=== PATIENT | female | born 1975 | race Caucasian/White ===

== ENCOUNTER 2020-03-23 13:13 | Outpatient (REF) | payer OTHER, SELFPAY ==
[2020-03-23 14:28] LABS: SARS COV2 PCR INHOUSE NEGATIVE (Negative)
== END 2020-03-23 13:14 | disposition home or self-care (01) ==
LOC: HO.LAB 13:13
PROVIDERS: Visit Provider Internal Medicine
DX: Z20.828 Contact with and (suspected) exposure to other viral communicable diseases (principal)
CPT/HCPCS: 87635

== ENCOUNTER 2020-03-28 12:46 | Outpatient (REF) | payer OTHER, SELFPAY ==
[2020-03-28 13:12] LABS: COVID-19 Test Negative (Negative)
== END 2020-03-28 12:47 | disposition home or self-care (01) ==
LOC: HO.LAB 12:46
PROVIDERS: Visit Provider Internal Medicine
DX: Z20.828 Contact with and (suspected) exposure to other viral communicable diseases (principal)
CPT/HCPCS: 87635

== ENCOUNTER 2020-04-01 15:53 | Outpatient (REF) | payer OTHER, SELFPAY ==
[2020-04-01 16:15] LABS: COVID-19 Test Negative (Negative)
== END 2020-04-01 15:54 | disposition home or self-care (01) ==
LOC: HO.LAB 15:53
PROVIDERS: Visit Provider Internal Medicine
DX: Z20.828 Contact with and (suspected) exposure to other viral communicable diseases (principal)
CPT/HCPCS: 87635

== ENCOUNTER 2020-04-10 11:57 | Outpatient (REF) | payer OTHER, SELFPAY ==
--- NOTE | 2020-04-10 12:02 | MM_ITS ---
EXAMINATION: MM SCREENING DIGITAL BREAST TOMOSYNTHESIS, BILATERAL CLINICAL INFORMATION: Screening. Asymptomatic. The lifetime risk of breast cancer based on the Tyrer-Cuzick Model is 10.3%. COMPARISON: Mammography: August 18, 2018 and studies dating back to May 19, 2011 TECHNIQUE: Digital breast tomosynthesis is performed in both the craniocaudal and mediolateral oblique views along with computer-aided detection (CAD). Synthesized 2D images are generated from the tomosynthesis. FINDINGS: The breasts are heterogeneously dense, which may obscure small masses (ACR BI-RADS breast composition Category c). There is a stable parenchymal pattern of the left breast with no new abnormal dominant mass or suspicious microcalcifications. Within the central aspect of the right breast on craniocaudal view only approximately 5 cm from the nipple there is question of an irregular marginated density versus of position of fibroglandular tissue which may contain some calcifications for which spot magnification view is recommended. MM/MM tomosynthesis screening BI IMPRESSION: Question developing density with calcifications right breast for which further evaluation is suggested. ASSESSMENT: BI-RADS 0: Incomplete - Need Additional Imaging Evaluation RECOMMENDATION: 1. Additional views of the right breast 2. Targeted ultrasound if warranted after review of the additional views. 3. Radiology department staff will contact the patient for additional imaging. This patient's information was entered into a reminder system with a target due date for their next mammogram.
== END 2020-04-10 11:58 | disposition home or self-care (01) ==
LOC: HO.MAMMO 11:57
PROVIDERS: PCP Family Medicine; Visit Provider Family Medicine
DX: Z12.31 Encounter for screening mammogram for malignant neoplasm of breast (principal)
CPT/HCPCS: 77063; 77067

== ENCOUNTER 2020-04-12 11:21 | Outpatient (REF) | payer OTHER, SELFPAY ==
--- NOTE | 2020-04-12 11:28 | MM_ITS ---
EXAMINATION: MM BREAST DIAGNOSTIC DIGITAL, RIGHT CLINICAL INFORMATION: Question mass with calcifications COMPARISON: Mammography: 04/10/2020 and studies dating back to 02/16/2016 TECHNIQUE: Digital mammography is performed in the following views: Spot magnification views of the right breast in craniocaudal and 90 degree mediolateral views. FINDINGS: The breasts are extremely dense, which lowers the sensitivity of mammography (ACR BI-RADS breast composition Category d). There appear to be a few scattered calcifications about the central inferior aspect of the right breast with no definite suspicious mass density and similar appearance to previous studies; however, there is a large amount of dense breast parenchyma present. The questioned calcifications which appear to be clustered may be artifactual related to tomosynthesis technique. Recommend six-month follow-up right breast mammogram to ensure stability. Results are discussed with the patient at time of visit. MM/MM added views RT IMPRESSION: No suspicious findings. Some scattered calcifications. Dense parenchyma. ASSESSMENT: BI-RADS 3: Probably Benign RECOMMENDATION: Diagnostic mammography in 6 months. This patient's information was entered into a reminder system with a target due date for their next mammogram.
== END 2020-04-12 11:22 | disposition home or self-care (01) ==
LOC: HO.MAMMO 11:21
PROVIDERS: Visit Provider Family Medicine
DX: R92.1 Mammographic calcification found on diagnostic imaging of breast (principal)
CPT/HCPCS: 77065

== ENCOUNTER 2020-04-19 15:08 | Outpatient (REF) | payer OTHER, SELFPAY ==
[2020-04-19 18:03] LABS: COVID-19 Test Negative (Negative)
== END 2020-04-19 15:09 | disposition home or self-care (01) ==
LOC: HO.EMPCOV 15:08
PROVIDERS: PCP Family Medicine; Visit Provider Internal Medicine
DX: Z20.828 Contact with and (suspected) exposure to other viral communicable diseases (principal)
CPT/HCPCS: 87635; C9803

== ENCOUNTER 2020-04-26 15:52 | Outpatient (REF) | payer OTHER, SELFPAY ==
[2020-04-26 18:22] LABS: COVID-19 Test Negative (Negative); IDNOW Serial# 55D5AD1C
== END 2020-04-26 15:53 | disposition home or self-care (01) ==
LOC: HO.LAB 15:52
PROVIDERS: Visit Provider Internal Medicine
DX: Z20.828 Contact with and (suspected) exposure to other viral communicable diseases (principal)
CPT/HCPCS: 87635; C9803

== ENCOUNTER 2020-05-07 10:03 | Outpatient (REF) | payer OTHER, SELFPAY ==
[2020-05-07 10:27] LABS: COVID-19 Test Negative (Negative)
== END 2020-05-07 10:04 | disposition home or self-care (01) ==
LOC: HO.EMPCOV 10:03
PROVIDERS: Visit Provider Internal Medicine
DX: Z20.828 Contact with and (suspected) exposure to other viral communicable diseases (principal)
CPT/HCPCS: 87635; C9803

== ENCOUNTER 2020-05-23 11:35 | Outpatient (REF) | payer OTHER, SELFPAY ==
[2020-05-25 14:01] LABS: SARS-COV-2 PCR UMBRL NOT DETECTED
== END 2020-05-23 11:36 | disposition home or self-care (01) ==
LOC: HO.LAB 11:35
PROVIDERS: Visit Provider Internal Medicine
DX: Z20.828 Contact with and (suspected) exposure to other viral communicable diseases (principal)
CPT/HCPCS: C9803; U0003

== ENCOUNTER 2020-06-10 08:13 | Outpatient (REF) | payer OTHER, SELFPAY ==
[2020-06-13 23:57] LABS: HPV mRNA E6/E7 rflx Not Detected (Not Detected)
== END 2020-06-10 08:14 | disposition home or self-care (01) ==
LOC: HO.LAB 08:13
PROVIDERS: Visit Provider Obstetrics & Gynecology
DX: Z12.4 Encounter for screening for malignant neoplasm of cervix (principal)
CPT/HCPCS: 36415; 87624; 88142

== ENCOUNTER → 2020-06-25 08:24 | Outpatient (BNVA) | payer OTHER, SELFPAY | PROVIDERS: Visit Provider Physician Assistant ==

== ENCOUNTER 2020-08-16 10:26 | Day surgery (SDC) | payer OTHER, SELFPAY ==
[2020-08-12 13:28] VITALS: BMI 32.4
[2020-08-15 08:35] VITALS: BMI 31.8
--- NOTE | 2020-08-15 15:42 | HO.ANESPROP2 ---
Documented by User: Zulma Piemntel 08/15/20 15:43 HPI - Anesthesia Eval Consult details Narrative: 44yo F for Colonoscopy PMFSH Active Problems Active Problems: All Active Problems (Updated 08/15/20 @ 08:38 by Nathalie Betancourt) Encounter for screening colonoscopy (Acute) Past Medical History Medical History (Updated 08/16/20 @ 11:31 by Marielena Jordan) COVID-19 vaccine administered History of headache Kidney stones Melanoma Subarachnoid hemorrhage Family History Family History Mother Bipolar 1 disorder Type 2 diabetes mellitus Father Lung cancer Melanoma Paternal Grandfather Heart disease Renal cancer Paternal Grandmother Stroke Maternal Grandfather Liver cancer Surgical History Surgical History (Updated 08/16/20 @ 11:30 by Marielena Jordan) Hx of melanoma excision Social History Social History Household Members: Children Are you a primary acute care physical therapist to a significant other at home: No Do you presently have visiting nurse or other home services: No Alcohol intake: never Smoking Status: Never smoker Use of substances other than those prescribed or required for medical reasons: No Have you been hit, kicked, punched, or otherwise hurt by someone within the past year? If so, by whom?: No Advance Directives Information Provided: No Recently lost weight without trying: No Sexual orientation: Straight/Heterosexual Gender identity: female Meds Allergies Allergy/AdvReac Type Severity Reaction Status Date / Time No Known Allergies Allergy Verified 06/10/20 08:20 Home Medications Medication Instructions Recorded Confirmed Last Taken Type multivitamin 1 tab PO DAILY 06/25/20 08/15/20 Unknown History Exam Exam Date and Time: August 15, 2020 1542 Height,Weight and Vital Signs: Height 5 ft 3 in Weight 81.647 kg Pertinent Lab Results Pertinent Lab Results: Laboratory Tests 12/27/19 12/27/19 09:32 09:32 WBC 6.5 Hgb 13.8 Hct 42.9 Plt Count 302 Sodium 140 Potassium 4.8 Chloride 103 BUN 18 H Creatinine 0.77 Assessment and Plan Assessment Anesthesia Assessment: Chart Reviewed Documented by User: Marielena Jordan 08/16/20 12:16 [facility] Past Medical History Medical History (Updated 08/16/20 @ 11:31 by Marielena Jordan) COVID-19 vaccine administered History of headache Kidney stones Melanoma Subarachnoid hemorrhage Family History Family History Mother Bipolar 1 disorder Type 2 diabetes mellitus Father Lung cancer Melanoma Paternal Grandfather Heart disease Renal cancer Paternal Grandmother Stroke Maternal Grandfather Liver cancer Family history of problems with anesthesia: No Surgical History Surgical History (Updated 08/16/20 @ 11:30 by Marielena Jordan) Hx of melanoma excision History of Problems with Anesthesia: No Social History Social History Household Members: Children Are you a primary acute care physical therapist to a significant other at home: No Do you presently have visiting nurse or other home services: No Alcohol intake: never Smoking Status: Never smoker Use of substances other than those prescribed or required for medical reasons: No Have you been hit, kicked, punched, or otherwise hurt by someone within the past year? If so, by whom?: No Advance Directives Information Provided: No Recently lost weight without trying: No Sexual orientation: Straight/Heterosexual Gender identity: female Meds Allergies Allergy/AdvReac Type Severity Reaction Status Date / Time No Known Allergies Allergy Verified 06/10/20 08:20 Home Medications Medication Instructions Recorded Confirmed Last Taken Type multivitamin 1 tab PO DAILY 06/25/20 08/15/20 Unknown History Exam Height,Weight and Vital Signs: Vital Signs Temp Pulse Resp BP Pulse Ox 08/16/20 11:00 97.5 F 67 16 135/69 100 Airway Mallampati Class: II TM Dist: >3cm Neck ROM: Full Loose/Missing/Broken Teeth: No Heart: RRR Lungs: CTAB Assessment and Plan Assessment Anesthesia Assessment: Anesthesia Plan Discussed and Chart Reviewed Final Anesthetic Review NPO: Yes ASA Class: II Final Preanesthetic Review: No Changes in Pt Med Stat, Meds/Allgs Chart Reviewed, Consent Obtained/Reviewed and Anes Risks/Benef Reviewed Patient Risk: Low Procedure Risk: Low Assessment/Block/Sedation in SS: Assess/Block/Sedation-SS Anesthetic Plan Anesthetic Plan: MAC: Disposition: Standard PACU
[2020-08-16 11:00] VITALS: BP 135/69; PULSE 67; RESP 16; TEMP 36.4; O2SAT 100
[2020-08-16] MEDS: Lactated Ringers 1,000 ML 100 ML IVCONT (11:11)
--- NOTE | 2020-08-16 11:12 | PC.NURSE ---
IV insertion by Guillermina Clarke RN
--- NOTE | 2020-08-16 11:38 | MHC.SHP ---
Pre-Procedural Eval Section B Chief Complaint: Screening Details of Present Illness: colon cancer screening No acute illnesses Headache this AM Relevant Family History (Specify if Yes): No Relevant Social History: None Present Medications: see Short Stay Collaborative assessment Medical History: Significant History (Melanoma, Subarachnoid hemorrhage) History of Previous Operations: No relevant previous surgery Allergies: Allergies Allergy/AdvReac Type Severity Reaction Status Date / Time No Known Allergies Allergy Verified 06/10/20 08:20 Review of Systems Sugical H&P ROS: Negative: Constitution, Cardiovascular, Respiratory, Gastrointestinal, Musculoskeletal and Endocrine Exam Surgical H&P Exam: Normal: HEENT, Normal: Heart, Normal: Lungs, Normal: Extremities, Normal: Abdomen and Normal: Skin Plan Diagnosis/Plan: Unchanged I have reviewed the history and physical and performed a pertinent physical examination on my patient. No changes have occurred unless specified.yes
[2020-08-16 12:32] VITALS: BP 99/44; PULSE 71; RESP 12; TEMP 36; O2SAT 98
--- NOTE | 2020-08-16 12:34 | PM.OP ---
Brief Operative Note Date of Service: 08/16/20 Pre-op diagnosis: Colon cancer screening Post-op diagnosis: other (Colon polyps) Procedure: Colonoscopy with excisional polypectomy x 2 with c bx forceps Implants: NONE Surgeon: Mary Padilla MD Anesthesia: MAC (MD Julian) Estimated blood loss (mL): 5 Pathology: other (ascending colon, 60cm) Condition: stable Disposition: PACU
[2020-08-16 12:47] VITALS: BP 116/67; PULSE 76; RESP 16; O2SAT 100
[2020-08-16] MEDS: Acetaminophen 325 MG TABLET 650 MG PO (13:13)
--- NOTE | 2020-08-25 09:19 | W.PM.OPN ---
Operative Note Operative Note Date of Service: 08/16/20 Narrative: Pre-op diagnosis: Colon cancer screening Post-op diagnosis: other (Colon polyps) Procedure: Colonoscopy with excisional polypectomy x 2 with c bx forceps Implants: NONE Surgeon: Mary Padilla MD Anesthesia: MAC (MD Julian) FINDINGS: IVIS-slight decrease in sphincter tone Adult slim colonoscope was introduced without difficulty. Advanced easily through rectosigmoid, descending, and transverse colon. There was moderate retention of material present that required about 1000 cc of flushing and suctioning. I was able to destinate in the cecum with view of the appendiceal orifice and valve seen. Removal of polyp in the ascending colon and @ 60cm was done with cold bx forceps technique. No additional lesions were identified. ARV was seen and was clear. Estimated blood loss (mL): 5 Pathology: other (ascending colon, 60cm) Condition: stable Disposition: PACU PLAN: Repeat colon cancer screening would be in 5 years. Suggest some modification of a 2 day prep @ that time.
== END 2020-08-16 14:16 | disposition home or self-care (01) ==
PROVIDERS: Visit Provider Internal Medicine Gastroenterology
PROC: 0DJD8ZZ Inspection of Lower Intestinal Tract, Via Natural or Artificial Opening Endoscopic (ICD-10-PCS; CPT 45378; principal; 2020-08-16 11:30)
DX: Z12.11 Encounter for screening for malignant neoplasm of colon (principal); D12.0 Benign neoplasm of cecum; D12.4 Benign neoplasm of descending colon; Z85.820 Personal history of malignant melanoma of skin; Z86.79 Personal history of other diseases of the circulatory system; Z87.442 Personal history of urinary calculi
CPT/HCPCS: 45380; 88305; J2250; J2405; J2765

== ENCOUNTER → 2020-08-22 08:32 | Outpatient (BNVA) | payer OTHER, SELFPAY | PROVIDERS: Visit Provider Physician Assistant ==

== ENCOUNTER 2020-09-13 15:53 | Outpatient (REF) | payer OTHER, SELFPAY ==
[2020-09-13 16:17] LABS: COVID-19 Test Negative (Negative); IDNOW Serial# 55D5AD1C
== END 2020-09-13 15:54 | disposition home or self-care (01) ==
LOC: HO.EMPCOV 15:53
PROVIDERS: Visit Provider Internal Medicine
DX: Z20.822 Contact with and (suspected) exposure to COVID-19 (principal)
CPT/HCPCS: 36415; 87635; C9803

== ENCOUNTER 2020-10-07 08:59 | Outpatient (REF) | payer OTHER, SELFPAY ==
--- NOTE | ~2020-10-07 | MM_ITS ---
EXAMINATION: MM DIAGNOSTIC DIGITAL BREAST TOMOSYNTHESIS, RIGHT CLINICAL INFORMATION: Short interval six-month follow-up for probable benign fibroglandular density and scattered calcifications. No known family history breast cancer. The lifetime risk of breast cancer based on the Tyrer-Cuzick Model is 10%. COMPARISON: Mammography: 04/12/2020, 04/10/2020 (BI-RADS 0), 08/18/2018, 08/11/2017. TECHNIQUE: Digital breast tomosynthesis is performed in both the craniocaudal and mediolateral oblique views along with computer-aided detection (CAD). Synthesized 2D images are generated from the tomosynthesis. Additional magnification views are obtained in the CC and ML views. FINDINGS: The breasts are heterogeneously dense, which may obscure small masses (ACR BI-RADS breast composition Category c). Breast tissue composition borders on average fibroglandular. There are no significant changes. There is no developing density, interval mass, or architectural abnormality. The magnification views show a few isolated calcifications without focal grouping or segmental distribution. Results are discussed with the patient at time of visit. Right breast will be reassessed again at time of annual bilateral mammography, due in 6 months. MM/MM tomosynthesis diagnostic RT IMPRESSION: No developing density or interval mass or architectural abnormality. No focal grouped calcifications. ASSESSMENT: BI-RADS 3: Probably Benign RECOMMENDATION: Diagnostic mammography at time of annual bilateral exam, due in 6 months. This patient's information was entered into a reminder system with a target due date for their next mammogram.
== END 2020-10-07 09:00 | disposition home or self-care (01) ==
LOC: HO.MAMMO 08:59
PROVIDERS: Visit Provider Family Medicine
DX: R92.1 Mammographic calcification found on diagnostic imaging of breast (principal)
CPT/HCPCS: 77061; 77065

== ENCOUNTER 2021-04-17 15:00 | Outpatient (REF) | payer OTHER, SELFPAY ==
--- NOTE | ~2021-04-17 | MM_ITS ---
EXAMINATION: MM DIAGNOSTIC DIGITAL BREAST TOMOSYNTHESIS, BILATERAL CLINICAL INFORMATION: Short interval follow-up probable benign fibroglandular densities right breast. Due for yearly. No known family history breast cancer. The lifetime risk of breast cancer based on the Tyrer-Cuzick Model is 10%. COMPARISON: Mammography: 10/07/2020, 04/12/2020, 04/10/2020, 08/18/2018, 08/11/2017, and outside mammography 02/14/2016 ([place], [place]). TECHNIQUE: Digital breast tomosynthesis is performed in both the craniocaudal and mediolateral oblique views along with computer-aided detection (CAD). Synthesized 2D images are generated from the tomosynthesis. FINDINGS: The breasts are heterogeneously dense, which may obscure small masses (ACR BI-RADS breast composition Category c). Parenchymal pattern is similar to prior studies. There is no significant mass. No developing density or interval architectural abnormality. There are no abnormal calcifications. The axilla and skin contours are unremarkable. Results are discussed with the patient at time of visit. MM/MM tomosynthesis diagnostic BI IMPRESSION: No significant changes from prior studies. ASSESSMENT: BI-RADS 2: Benign RECOMMENDATION: Routine annual mammography screening. This patient's information was entered into a reminder system with a target due date for their next mammogram.
== END 2021-04-17 15:01 | disposition home or self-care (01) ==
LOC: HO.MAMMO 15:00
PROVIDERS: Visit Provider Family Medicine
DX: R92.1 Mammographic calcification found on diagnostic imaging of breast (principal)
CPT/HCPCS: 77062; 77066

== ENCOUNTER 2021-06-05 16:56 | Outpatient (REF) | payer OTHER, SELFPAY ==
[2021-06-05 17:29] LABS: COVID-19 Test Negative (Negative)
== END 2021-06-05 16:57 | disposition home or self-care (01) ==
LOC: HO.LAB 16:56
PROVIDERS: Visit Provider Internal Medicine
DX: Z20.822 Contact with and (suspected) exposure to COVID-19 (principal)
CPT/HCPCS: 36415; 87635

== ENCOUNTER 2021-06-14 11:05 | Outpatient (REF) | payer OTHER, SELFPAY ==
[2021-06-14 11:37] LABS: COVID-19 Test Negative (Negative)
== END 2021-06-14 11:06 | disposition home or self-care (01) ==
LOC: HO.LAB 11:05
PROVIDERS: Visit Provider Internal Medicine
DX: Z20.822 Contact with and (suspected) exposure to COVID-19 (principal)
CPT/HCPCS: 87635

== ENCOUNTER 2021-08-06 10:54 | Emergency (ER) | payer OTHER, SELFPAY ==
--- NOTE | ~2021-08-06 | XR_ITS ---
EXAMINATION: XR CHEST CLINICAL INFORMATION: Chest pain COMPARISON: None TECHNIQUE: AP portable view of the chest was obtained. FINDINGS: No significant abnormality is noted involving the heart, lungs, mediastinum, bony thorax or soft tissues. XR/XR chest 1V IMPRESSION: No acute disease.
[2021-08-06 11:04] VITALS: BP 141/67; PULSE 96; RESP 16; TEMP 37.1; O2SAT 96; BMI 31.5
--- NOTE | 2021-08-06 11:04 | ECG_ITS ---
Test Reason : CHEST PAIN Blood Pressure : / mmHG Vent. Rate : 082 BPM Atrial Rate : 082 BPM P-R Int : 212 ms QRS Dur : 062 ms QT Int : 360 ms P-R-T Axes : 083 038 059 degrees QTc Int : 420 ms Sinus rhythm with 1st degree A-V block Otherwise normal ECG No previous ECGs available Referred By: Melanie Andrews Electronically Signed By:Andres Dorado
--- NOTE | 2021-08-06 11:12 | ED_ITS ---
HPI - Chest Pain General Chief Complaint: Chest Pain Stated Complaint: Chest pain Time Seen by Provider: 08/06/21 11:04 Source: patient Mode of arrival: ambulatory Limitations: no limitations History of Present Illness MD complaint: chest pain Onset (ago): day(s) (3) Timing of current episode: episodic Prior episodes: Yes (had stress test in the past but symptoms not to this degree) Onset: during rest and awoke with symptoms (woke her from sleep last night) Pain location: substernal and left chest Pain radiation: neck Severity: moderate Quality: other (cramping) Relieving factors: nothing Exacerbating factors: nothing Context: recent illness (had COVID 1 month ago) Associated symptoms: dyspnea (did take her breath away at one point but does not feel short of breath) Treatment prior to arrival: none Risk Factors Thoracic aortic dissection risk factors: none Related Data Home Medications Medication Instructions Recorded Confirmed multivitamin 1 tab PO DAILY 06/25/20 08/15/20 Allergies Allergy/AdvReac Type Severity Reaction Status Date / Time No Known Allergies Allergy Verified 08/22/20 08:33 Review of Systems Review of Systems: Constitutional : no fatigue, No Fever, No Chills ENT/Mouth : No sore throat, No Rhinorrhea Eyes: No Eye Pain, No Swelling Cardiovascular : pos Chest Pain, pos SOB, no Dyspnea on Exertion, No Orthopnea, No Edema, No Palpitations Respiratory : No Cough, No Sputum Gastrointestinal : no Nausea, No Vomiting, No Diarrhea, No abdominal Pain, No Hematochezia, No Melena Genitourinary : No Dysuria, No Urinary Frequency Musculoskeletal : No joint pain, No Myalgias, No Joint Swelling Skin : No Skin Lesions, No rash Neuro : No Weakness, No Numbness, No Dizziness, No Headache All other systems reviewed and are negative [facility] Past Medical History Attestation statement: The following information was validated with the patient. Medical History COVID-19 vaccine administered Encounter for screening colonoscopy History of headache Kidney stones Melanoma Subarachnoid hemorrhage Surgical History Hx of melanoma excision Family History Family History Mother Bipolar 1 disorder Type 2 diabetes mellitus Father Lung cancer Melanoma Paternal Grandfather Heart disease Renal cancer Paternal Grandmother Stroke Maternal Grandfather Liver cancer Social History Social History (Updated 08/06/21 @ 11:16 by Melanie Andrews DO) Household Members: Spouse and Children Household Members Other:: 3 children Are you a primary child care supervisor to a significant other at home: No Do you presently have visiting nurse or other home services: No Alcohol intake: current Alcohol intake frequency: holidays/special occasions only Patient Tobacco Use Status: Never used Tobacco Advance Directives: No Advance Directives Information Provided: No Current occupational status: employed Current occupation: [employer] [place] Sexual orientation: Straight/Heterosexual Gender identity: Female Physical Exam Vital Signs: Vital Signs: Last Vital Signs Temp 98.7 F 08/06/21 12:30 Pulse 72 08/06/21 14:22 Resp 14 08/06/21 14:22 BP 112/65 08/06/21 14:22 Pulse Ox 100 08/06/21 14:22 BMI result Body Mass Index 31.5 Appearance: Alert. Oriented X3. No acute distress. Eyes: Pupils equal, round and reactive to light. ENT: Pharynx normal. Neck: Normal inspection. Neck supple. CVS: Normal heart rate and rhythm. Pulses normal. Chest wall: not reproduceable Respiratory: No respiratory distress. Breath sounds normal. Abdomen: Soft and nontender. Skin: Skin warm and dry. Normal skin color. Normal skin turgor. Extremities: No lower extremity edema. No calf ttp Neuro: Oriented X 3. No motor deficit. No sensory deficit. Course Course Course Narrative: declines pain medications at this time Dr. Dorado aware will consult [id number] - ECHO ordered to look for any RWMA ddimer negative Estrada has seen patient if biomarkers negative can DC home follow up outpatient stress very atypical can hold off ECHO as long as troponins are negative repeat trop negative, stable for DC at this time with outpatient follow up MDM - Chest Pain MDM Narrative Medical decision making narrative: 45 yo female in good health recent COVID dx about 1 month ago did well she is not on OCPs she comes in with chest pain described as cramping on and off for 3 to 4 days it has woken her from sleep there are no exacerbating triggers it is not pleuritic or related to exertion. She has no ACS risk factors other than grandfather with CAD. At this time EKG, CXR, troponin and ddimer ordered. She has distal strong pulses doubt dissection at this time. PE seems unlikely she is PERC negative did recently recover from COVID - ddimer ordered. Dispo per results and findings. Lab Data Result diagrams: 08/06/21 11:27 08/06/21 11:27 Labs: Lab Results 08/06/21 08/06/21 08/06/21 Range/Units 11:27 11:27 11:27 WBC 6.3 (4.8-10.8) X10*3/uL RBC 4.22 (4.20-5.50) X10*6/uL Hgb 12.9 (12.0-16.0) g/dl Hct 38.7 (37.0-47.0) % MCV 91.7 (80.0-98.0) fL MCH 30.6 (27.0-33.0) pg MCHC 33.3 (31.0-35.0) g/dl RDW 13.4 (11.0-16.0) % Plt Count 273 (160-400) X10*3/uL MPV 10.3 (9.4-12.3) fL Immature Gran % (Auto) 0.5 H (0.0-0.4) % Neut % (Auto) 61.2 (45-73) % Lymph % (Auto) 29.7 (20-40) % [place] % (Auto) 6.9 (2-11) % Eos % (Auto) 0.9 (0-4) % Baso % (Auto) 0.8 (0-2) % Lymph # (Auto) 1.9 (1.2-4.9) X10*3/uL [place] # (Auto) 0.4 (0.1-1.2) X10*3/uL Eos # (Auto) 0.1 (0.0-0.4) X10*3/uL Baso # (Auto) 0.1 (0.0-0.2) X10*3/uL Abs Immat Gran (auto) 0.03 (0.00-0.03) X10*3/uL Absolute Neuts (auto) 3.9 (2.0-8.3) x10*3/uL Absolute Nucleated RBC 0.000 (0.0-0.012) X10*3/uL Nucleated RBC % (auto) 0.0 (0.0-0.2) /100WBC PT 12.1 (9.9-13.0) SEC INR 1.1 (0.9-1.1) D-Dimer High Sensitivty < 150 NG/ML Sodium 139 (135-145) mmol/L Potassium 4.2 (3.3-5.1) mmol/L Chloride 106 (96-108) mmol/L Carbon Dioxide 24 (22-29) mmol/L Anion Gap 13 (12-20) BUN 15 (9-16) mg/dL Creatinine 0.71 (0.5-1.4) mg/dL Estim Creat Clear Calc 99.5 Estimated GFR > 60 Random Glucose 108 (60-115) mg/dL Calcium 9.6 (8.4-10.2) mg/dL Magnesium 1.9 (1.6-2.6) mg/dL Total Bilirubin 0.3 (0.0-1.0) mg/dL Direct Bilirubin 0.2 (0.0-0.5) mg/dL AST 13 (5-31) U/L ALT 10 (0-31) U/L Alkaline Phosphatase 63 (39-117) U/L Troponin I High Sens (<3.5-17.0) ng/L Total Protein 7.2 (6.5-8.0) g/dL Albumin 4.2 (3.5-5.0) g/dL Lipase 26 (8-78) U/L 08/06/21 08/06/21 Range/Units 11:27 14:57 WBC (4.8-10.8) X10*3/uL RBC (4.20-5.50) X10*6/uL Hgb (12.0-16.0) g/dl Hct (37.0-47.0) % MCV (80.0-98.0) fL MCH (27.0-33.0) pg MCHC (31.0-35.0) g/dl RDW (11.0-16.0) % Plt Count (160-400) X10*3/uL MPV (9.4-12.3) fL Immature Gran % (Auto) (0.0-0.4) % Neut % (Auto) (45-73) % Lymph % (Auto) (20-40) % [place] % (Auto) (2-11) % Eos % (Auto) (0-4) % Baso % (Auto) (0-2) % Lymph # (Auto) (1.2-4.9) X10*3/uL [place] # (Auto) (0.1-1.2) X10*3/uL Eos # (Auto) (0.0-0.4) X10*3/uL Baso # (Auto) (0.0-0.2) X10*3/uL Abs Immat Gran (auto) (0.00-0.03) X10*3/uL Absolute Neuts (auto) (2.0-8.3) x10*3/uL Absolute Nucleated RBC (0.0-0.012) X10*3/uL Nucleated RBC % (auto) (0.0-0.2) /100WBC PT (9.9-13.0) SEC INR (0.9-1.1) D-Dimer High Sensitivty NG/ML Sodium (135-145) mmol/L Potassium (3.3-5.1) mmol/L Chloride (96-108) mmol/L Carbon Dioxide (22-29) mmol/L Anion Gap (12-20) BUN (9-16) mg/dL Creatinine (0.5-1.4) mg/dL Estim Creat Clear Calc Estimated GFR Random Glucose (60-115) mg/dL Calcium (8.4-10.2) mg/dL Magnesium (1.6-2.6) mg/dL Total Bilirubin (0.0-1.0) mg/dL Direct Bilirubin (0.0-0.5) mg/dL AST (5-31) U/L ALT (0-31) U/L Alkaline Phosphatase (39-117) U/L Troponin I High Sens < 3.5 < 3.5 (<3.5-17.0) ng/L Total Protein (6.5-8.0) g/dL Albumin (3.5-5.0) g/dL Lipase (8-78) U/L ECG Data ECG #1: Attestation: I personally reviewed and interpreted this ECG as follows: ECG interpretation date: 08/06/21 ECG interpretation time: 11:15 Interpretation: Rate: 82 Rhythm: NSR with 1st degree AVB [place]: normal Normal P waves. Normal TAYA. Normal QRS complex. ST T wave : no ISELA qTC: normal prior studies: no acute ischemia The study has been interpreted contemporaneously by me. . Scores Heart Score History: -0- slightly suspicious ECG: -0- normal Age: -1- >45 - <65 Risk factory: -1- 1 or 2 risk factors Troponin: -0- < or = normal limit Score: 2 Risk: 1.7% Discharge Plan Discharge Clinical Impression: Chest pain Qualifiers: Chest pain type: precordial pain Qualified Code(s): R07.2 - Precordial pain Patient Disposition: Home, Self-Care Instructions: Chest Pain (ED) Additional Instructions: return to ED for any worsening symptoms or concerns please follow up with Cardiology for outpatient stress test Prescriptions: No Action multivitamin Tablet 1 tab PO DAILY 0RF Referrals: Andres Dorado MD [Physician] - 2 days Interventions: ED Discharge Assessment Last Done: 08/06/21 15:39 Discharge Date/Time: 08/06/21 15:39
[2021-08-06] MEDS: Aspirin 81 MG TAB.CHEW PO (11:13)
[2021-08-06 11:32] LABS: MANUAL DIFF FLAG NO
[2021-08-06 11:34] LABS: Basophils Absolute Auto 0.1 X10*3/uL (0.0-0.2); Basophils Percent Auto 0.8 % (0-2); Eosinophils Absolute Auto 0.1 X10*3/uL (0.0-0.4); Eosinophils Percent Auto 0.9 % (0-4); Hematocrit 38.7 % (37.0-47.0); Hemoglobin 12.9 g/dl (12.0-16.0); Imm Gran Abs Auto 0.03 X10*3/uL (0.00-0.03); Imm Gran Pct Auto 0.5 % (0.0-0.4); Lymphocytes Absolute Auto 1.9 X10*3/uL (1.2-4.9); Lymphocytes Percent Auto 29.7 % (20-40); Mean Corpuscular HGB Conc 33.3 g/dl (31.0-35.0); Mean Corpuscular Hemoglobin 30.6 pg (27.0-33.0); Mean Corpuscular Volume 91.7 fL (80.0-98.0); Mean Platelet Volume 10.3 fL (9.4-12.3); Monocytes Absolute Auto 0.4 X10*3/uL (0.1-1.2); Monocytes Percent Auto 6.9 % (2-11); Neutrophils Absolute Auto 3.9 x10*3/uL (2.0-8.3); Neutrophils Percent Auto 61.2 % (45-73); Platelet Count 273 X10*3/uL (160-400); Red Blood Count 4.22 X10*6/uL (4.20-5.50); Red Cell Distribution Width 13.4 % (11.0-16.0); White Blood Count 6.3 X10*3/uL (4.8-10.8)
[2021-08-06 11:42] LABS: INTERNATIONAL NORM RATIO 1.1 (0.9-1.1); Prothrombin Time 12.1 SEC (9.9-13.0)
[2021-08-06 11:45] LABS: D Dimer High Sensitivity < 150 NG/ML
--- NOTE | 2021-08-06 11:46 | PC.NURSE ---
@ 11:43AM DR JONES REQUEST CALL PLACED TO CARDIOLOGY TO MAKE THEM AWARE OF AN ECHO ORDER PLACED WITH DR DAVILA REQUEST
[2021-08-06 11:50] LABS: Alanine Aminotransferase 10 U/L (0-31); Albumin Level 4.2 g/dL (3.5-5.0); Alkaline Phosphatase 63 U/L (39-117); Anion Gap 13 (12-20); Aspartate Amino Transferase 13 U/L (5-31); Bilirubin Direct 0.2 mg/dL (0.0-0.5); Bilirubin Total 0.3 mg/dL (0.0-1.0); Blood Urea Nitrogen 15 mg/dL (9-16); Calcium 9.6 mg/dL (8.4-10.2); Carbon Dioxide 24 mmol/L (22-29); Chloride 106 mmol/L (96-108); Creatinine Clr Calc Pharmacy 99.5; Estimated Glomerular Filt Rate > 60; Glucose Random 108 mg/dL (60-115); Lipase 26 U/L (8-78); Magnesium 1.9 mg/dL (1.6-2.6); Potassium 4.2 mmol/L (3.3-5.1); Sodium 139 mmol/L (135-145); Total Protein 7.2 g/dL (6.5-8.0)
[2021-08-06 11:53] LABS: Troponin-I High Sensitivity < 3.5 ng/L (<3.5-17.0)
[2021-08-06 12:30] VITALS: BP 111/67; PULSE 70; RESP 14; TEMP 37.1; O2SAT 98
--- NOTE | 2021-08-06 12:46 | P.CONCA_ITS ---
History of Present Illness History of Present Illness Date of Service: 08/06/21 Requesting physician: Melanie Andrews Chief complaint: Chest pain Narrative: 45-year-old female with background history of chest pain for which she underwent stress test in 2017 which was essentially normal. She is now presenting with 3 days of chest discomfort off and on. She has a dull sensation on the left side of her chest. This is nonexertional and happens randomly. There is no exacerbation of chest discomfort with activity. No shortness of breath. No sweating or any other concerning features. With these symptoms he presented to the ER. Her EKG did not show any dynamic changes. Biomarkers were normal. [facility] Past Medical History Medical History COVID-19 vaccine administered Encounter for screening colonoscopy History of headache Kidney stones Melanoma Subarachnoid hemorrhage Family History Family History Mother Bipolar 1 disorder Type 2 diabetes mellitus Father Lung cancer Melanoma Paternal Grandfather Heart disease Renal cancer Paternal Grandmother Stroke Maternal Grandfather Liver cancer Surgical History Surgical History Hx of melanoma excision Social History Social History (Updated 08/06/21 @ 11:16 by Melanie Andrews DO) Household Members: Spouse and Children Household Members Other:: 3 children Are you a primary day care provider to a significant other at home: No Do you presently have visiting nurse or other home services: No Alcohol intake: current Alcohol intake frequency: holidays/special occasions only Patient Tobacco Use Status: Never used Tobacco Advance Directives: No Advance Directives Information Provided: No Current occupational status: employed [place] [employer] [place] Sexual orientation: Straight/Heterosexual Gender identity: Female Meds Allergies Allergy/AdvReac Type Severity Reaction Status Date / Time No Known Allergies Allergy Verified 08/22/20 08:33 Home Medications Medication Instructions Recorded Confirmed Last Taken Type multivitamin 1 tab PO DAILY 06/25/20 08/15/20 Unknown History Physical Exam Vital Signs: Vital Signs: Last Vital Signs Temp 98.7 F 08/06/21 12:30 Pulse 70 08/06/21 12:30 Resp 14 08/06/21 12:30 BP 111/67 08/06/21 12:30 Pulse Ox 98 08/06/21 12:30 BMI result Body Mass Index 31.5 GENERAL APPEARANCE: in no acute distress, pleasant. NECK: no carotid bruit, no jugular venous distention. SKIN: no suspicious lesions, warm and dry. HEART: no murmurs, regular rate and rhythm. LUNGS: clear to auscultation bilaterally. ABDOMEN: soft, nontender. EXTREMITIES: no edema. PERIPHERAL PULSES: equal. NEUROLOGIC: No gross deficits, AAO X 3 Objective Labs and Meds Result diagrams: 08/06/21 11:27 08/06/21 11:27 Lab results: Laboratory Results - last 24 hr 08/06/21 08/06/21 08/06/21 11:27 11:27 11:27 WBC 6.3 RBC 4.22 Hgb 12.9 Hct 38.7 MCV 91.7 MCH 30.6 MCHC 33.3 RDW 13.4 Plt Count 273 MPV 10.3 Immature Gran % (Auto) 0.5 H Neut % (Auto) 61.2 Lymph % (Auto) 29.7 Mason % (Auto) 6.9 Eos % (Auto) 0.9 Baso % (Auto) 0.8 Lymph # (Auto) 1.9 Mason # (Auto) 0.4 Eos # (Auto) 0.1 Baso # (Auto) 0.1 Abs Immat Gran (auto) 0.03 Absolute Neuts (auto) 3.9 Absolute Nucleated RBC 0.000 Nucleated RBC % (auto) 0.0 PT 12.1 INR 1.1 D-Dimer High Sensitivty < 150 Sodium 139 Potassium 4.2 Chloride 106 Carbon Dioxide 24 Anion Gap 13 BUN 15 Creatinine 0.71 Estim Creat Clear Calc 99.5 Estimated GFR > 60 Random Glucose 108 Calcium 9.6 Magnesium 1.9 Total Bilirubin 0.3 Direct Bilirubin 0.2 AST 13 ALT 10 Alkaline Phosphatase 63 Troponin I High Sens Total Protein 7.2 Albumin 4.2 Lipase 26 08/06/21 11:27 WBC RBC Hgb Hct MCV MCH MCHC RDW Plt Count MPV Immature Gran % (Auto) Neut % (Auto) Lymph % (Auto) Mason % (Auto) Eos % (Auto) Baso % (Auto) Lymph # (Auto) Mason # (Auto) Eos # (Auto) Baso # (Auto) Abs Immat Gran (auto) Absolute Neuts (auto) Absolute Nucleated RBC Nucleated RBC % (auto) PT INR D-Dimer High Sensitivty Sodium Potassium Chloride Carbon Dioxide Anion Gap BUN Creatinine Estim Creat Clear Calc Estimated GFR Random Glucose Calcium Magnesium Total Bilirubin Direct Bilirubin AST ALT Alkaline Phosphatase Troponin I High Sens < 3.5 Total Protein Albumin Lipase Imaging Radiologist's impression: Impressions Chest X-Ray 08/06/21 11:43 IMPRESSION: No acute disease. Assessment and Plan (1) Chest pain: Qualifiers: Chest pain type: precordial pain Qualified Code(s): R07.2 - Precordial pain Status: Acute Plan Pleasant 45-year-old female who is presenting with chest pain. The chest pain is quite atypical and random. Her biomarkers are normal. EKG has no dynamic changes. She previously had chest pains for which she underwent stress testing approximately for 5 years ago which was normal. We discussed about management of chest pain in her situation. I have proposed to her that we should do an exercise stress test. I have given her the option to stay inpatient and get thi s done tomorrow versus outpatient and she has decided to do it as outpatient. We will arrange an exercise stress test for her. I have advised her to try PPIs to see if this is acid reflux and resulting esophageal spasm. Thank you for allowing me to participate in the care of your patient. Please feel free to contact me if you have any questions. Procedures Date of Service Date of Service: 08/06/21
[2021-08-06 14:22] VITALS: BP 112/65; PULSE 72; RESP 14; O2SAT 100
[2021-08-06 15:25] LABS: Troponin-I High Sensitivity < 3.5 ng/L (<3.5-17.0)
== END 2021-08-06 15:39 | disposition home or self-care (01) ==
PROVIDERS: Emergency Provider Emergency Medicine; PCP Family Medicine
DX: R07.2 Precordial pain (principal); R06.02 Shortness of breath
CPT/HCPCS: 36415; 71045; 80048; 80076; 83690; 83735; 84484; 85025; 85379; 85610; 93005; 99283; 99284

== ENCOUNTER → 2021-08-18 12:33 | Outpatient (BNVA) | payer OTHER, SELFPAY | PROVIDERS: PCP Family Medicine; Visit Provider Internal Medicine Gastroenterology | DX: K21.9 Gastro-esophageal reflux disease without esophagitis (principal); R13.10 Dysphagia, unspecified; R10.13 Epigastric pain | CPT/HCPCS: 99212 ==

== ENCOUNTER → 2021-08-19 09:03 | Outpatient (REF) | payer OTHER, SELFPAY ==
--- NOTE | 2021-08-19 09:07 | CA_ITS ---
Acquisition Time: 2021-08-19 09:29:53 Total Exercise Time: 00:09:01 Test Indications: PRECORDIAL CP Medications: Protocol: RIVAS Max HR: 162 BPM 93% of Pred: 174 BPM Max BP: 140/082 mmHG Max Work Load: 10.4 METS Exercise stress test with exercise 9 min 1 sec of Rivas protocol, achieving 92% MPHR, 9.8 METs, without anginal symptoms, with isolated PVCs, with normotensive response to exercise, with signficant artifact during exercise, without EKG changes of ischemia at 16 sec of recovery and remainder of recovery. Test reviewed with Dr Everett. Referred By: Andres Dorado Overread By: FAUSTINA CHATTERJEE
== END ==
LOC: HO.CARD 09:03
PROVIDERS: PCP Family Medicine; Visit Provider Internal Medicine Cardiovascular Disease
DX: R07.2 Precordial pain (principal)
CPT/HCPCS: 93017

== ENCOUNTER 2021-10-01 10:18 | Outpatient (REF) | payer OTHER, SELFPAY ==
[2021-10-01 12:32] LABS: Magnesium 2.1 mg/dL (1.6-2.6)
[2021-10-01 12:34] LABS: Cholesterol 193 mg/dL; HDL Cholesterol 67 mg/dL; LDL Cholesterol Calculated 117 mg/dl; Triglycerides 46 mg/dL
[2021-10-01 12:57] LABS: TSH reflex Free T4 1.22 uIU/mL (0.32-4.0); Vitamin D 25-OH Total 28.3 ng/mL (>30)
[2021-10-02 06:05] LABS: ~HepC Num1 0.07 S/CO (0.00-0.79); ~Hepatitis C Antibody Nonreactive (Nonreactive)
[2021-10-03 00:46] LABS: LDL Cholesterol Direct 114 mg/dL (<100)
== END 2021-10-01 10:19 | disposition home or self-care (01) ==
LOC: HO.LAB 10:18
PROVIDERS: PCP Family Medicine; Visit Provider Family Medicine
DX: E78.00 Pure hypercholesterolemia, unspecified (principal); G43.909 Migraine, unspecified, not intractable, without status migrainosus; Z11.59 Encounter for screening for other viral diseases
CPT/HCPCS: 36415; 80061; 82306; 83721; 83735; 84443; 86803

== ENCOUNTER 2021-10-01 10:45 | Day surgery (SDC) | payer OTHER, SELFPAY ==
[2021-09-26 09:18] VITALS: BMI 33.3
[2021-10-01 11:16] LABS: UPreg QC Valid YES; Urine Pregnancy NEGATIVE (NEGATIVE)
--- NOTE | 2021-10-01 11:18 | MHC.SHP ---
Pre-Procedural Eval Section A Date of Service: 10/01/21 Section B Chief Complaint: non cardiac chest pain, nausea Relevant Family History (Specify if Yes): No Relevant Social History: None Present Medications: see Short Stay Collaborative assessment Medical History: Significant History (History of headache Kidney stones Melanoma Subarachnoid hemorrhage) History of Previous Operations: Relevant previous surgery/procedure and date(s) (melanoma excision) Allergies: Allergies Allergy/AdvReac Type Severity Reaction Status Date / Time No Known Allergies Allergy Verified 08/18/21 12:40 Review of Systems Sugical H&P ROS: Negative: Constitution, Cardiovascular, Respiratory, Neurological, Psychiatric, Hem-Onc, Allergic/Immunologic, Gastrointestinal, Genitourinary, Musculoskeletal, Integumentary, Endocrine and Eyes/Ears/Nose/Throat Exam Surgical H&P Exam: Normal: HEENT, Normal: Heart, Normal: Lungs, Normal: Extremities, Normal: Abdomen, Normal: Skin and Normal: Neurological Plan Diagnosis/Plan: Unchanged I have reviewed the history and physical and performed a pertinent physical examination on my patient. No changes have occurred unless specified.
--- NOTE | 2021-10-01 11:24 | P.CONAN_ITS ---
[facility] Active Problems Active Problems: All Active Problems (Updated 09/26/21 @ 09:17 by Nathalie Betancourt RN) Tubular adenoma of colon (Acute) Encounter for screening colonoscopy (Acute) Past Medical History Medical History (Updated 09/26/21 @ 09:17 by Nathalie Betancourt RN) Chest pain COVID-19 vaccine series completed Encounter for screening colonoscopy History of COVID-19 History of headache Kidney stones Melanoma Subarachnoid hemorrhage Family History Family History Mother Bipolar 1 disorder Type 2 diabetes mellitus Father Lung cancer Melanoma Paternal Grandfather Heart disease Renal cancer Paternal Grandmother Stroke Maternal Grandfather Liver cancer Family history of problems with anesthesia: No Surgical History Surgical History (Updated 09/25/21 @ 15:28 by Nathalie Betancourt RN) Hx of colonoscopy Hx of melanoma excision History of Problems with Anesthesia: No Social History Social History Household Members: Spouse and Children Household Members Other:: 3 children Are you a primary animal care taker to a significant other at home: No Do you presently have visiting nurse or other home services: No Alcohol intake: current Alcohol intake frequency: holidays/special occasions only Patient Tobacco Use Status: Never used Tobacco Use of substances other than those prescribed or required for medical reasons: No Are you DNR?: No Advance Directives: No (states has official HCP & will bring copy DOS) Advance Directives Information Provided: Yes Advance Directives on File: No Recently lost weight without trying: No Eating poorly because of decreased appetite: No Nutrition Risks: No Nutritional Risk Poor oral hygiene: No Current occupational status: employed Current occupation: [employer] [place] Sexual orientation: Straight/Heterosexual Gender identity: Female Meds Allergies Allergy/AdvReac Type Severity Reaction Status Date / Time No Known Allergies Allergy Verified 08/18/21 12:40 Home Medications Medication Instructions Recorded Confirmed Last Taken Type multivitamin 1 tab PO DAILY 06/25/20 10/01/21 1 Day Ago History ~09/30/21 omeprazole magnesium 20 mg 20 mg PO DAILY 08/18/21 09/26/21 Unknown History tablet,delayed release (Prilosec OTC) Exam Exam Date and Time: October 01, 2021 1124 Height,Weight and Vital Signs: Height 5 ft 3 in Weight 85.275 kg Pertinent Lab Results Pertinent Lab Results: Laboratory Tests 10/01/21 11:00 Urine Test NEGATIVE Airway Mallampati Class: II TM Dist: >3cm Neck ROM: Full Heart: rrr Lungs: cta Assessment and Plan Assessment Anesthesia Assessment: Anesthesia Plan Discussed and Chart Reviewed Final Anesthetic Review Family History of Problems with Anesthesia: No History of Problems with Anesthesia: No NPO: Yes ASA Class: II Final Preanesthetic Review: No Changes in Pt Med Stat, Meds/Allgs Chart Reviewed and Consent Obtained/Reviewed Patient Risk: Intermediate Procedure Risk: Intermediate Anesthetic Plan Anesthetic Plan: MAC: Disposition: Standard PACU
--- NOTE | 2021-10-01 11:31 | PM.OP ---
Brief Operative Note Date of Service: 10/01/21 Pre-op diagnosis: non cardiac chest pain, nausea Post-op diagnosis: same Procedure: see op note Surgeon: Daniel Welch MD Anesthesia: MAC Was an Senior Interaction Designer used for this Procedure?: No Estimated blood loss (mL): 0 Condition: stable Disposition: PACU
--- NOTE | 2021-10-01 11:31 | W.PM.OPN ---
Operative Note Operative Note Date of Service: 10/01/21 Narrative: Procedure Description: EGD Indication: [] Anesthesia: MAC FLEXIBLE TRANSORAL UPPER GASTROINTESTINAL ENDOSCOPY UPPER ENDOSCOPY Consent: Indications for the procedure and potential complications of bleeding, perforation, reaction to medications and missed diagnosis were discussed with the patient and informed consent was obtained. Instrument: Olympus GIF H 190 J mid size upper endoscope Monitoring: Vital signs and clinical assessment, continuous EKG monitoring, Pulse oximetry, Carbon Dioxide monitoring and blood pressure monitoring were done throughout the procedure. Procedure: The patient was placed in the left lateral decubitis position and pre-procedure medications were administered and a bite block was placed. The endoscope was inserted into the mouth and advanced under direct vision to the third part of duodenum. A careful inspection was made as the upper endoscope was withdrawn including a retroflexed examination of the proximal stomach; Findings and interventions are described below. Findings: Larynx:normal Esophagus: GE junction at 35 cm, diaphragm hiatus at 37 cm, consistent with 2 cm sliding hiatal hernia, non obstructive schatzki ring noted. LA grade A esophagitis at GEJ with some bogginess and edema noted. Stomach: Patchy gastric erythema with erosions in the mid body. Biopsies were obtained. Grade 2 flap valve on retroflexed examination of the cardia. Duodenum: Normal bulb and descending duodenum, bx taken Intervention: Biopsies as noted above Impression/Findings: hiatal hernia, small erosive gastritis esophagitis schatzki ring PLAN: consider HIGH dose PPi for 3 months then titrate down based on clinical response GERD precautions lifestyles changes, check nsaid use
[2021-10-01 11:45] VITALS: BP 128/63; PULSE 67; RESP 17; TEMP 36.3; O2SAT 100
[2021-10-01 12:15] VITALS: BP 102/54; PULSE 103; RESP 16; TEMP 36.4; O2SAT 100
[2021-10-01 12:30] VITALS: BP 116/53; PULSE 71; RESP 16; O2SAT 98
[2021-10-01 12:45] VITALS: BP 116/52; PULSE 70; RESP 16; TEMP 37.2; O2SAT 98
== END 2021-10-01 13:05 | disposition home or self-care (01) ==
PROVIDERS: Anesthesiology; PCP Family Medicine; Visit Provider Internal Medicine Gastroenterology
PROC: 0DJ08ZZ Inspection of Upper Intestinal Tract, Via Natural or Artificial Opening Endoscopic (ICD-10-PCS; CPT 43235; principal; 2021-10-01 11:50)
DX: K22.2 Esophageal obstruction (principal); K29.60 Other gastritis without bleeding; K20.80 Other esophagitis without bleeding; K44.9 Diaphragmatic hernia without obstruction or gangrene; Z87.442 Personal history of urinary calculi; Z86.79 Personal history of other diseases of the circulatory system; Z86.16 Personal history of COVID-19
CPT/HCPCS: 43239; 81025; 88305; 88342

== ENCOUNTER → 2021-10-27 13:47 | Outpatient (BNVA) | payer OTHER, SELFPAY | PROVIDERS: PCP Family Medicine; Visit Provider Internal Medicine Gastroenterology | DX: K21.9 Gastro-esophageal reflux disease without esophagitis (principal) ==

== ENCOUNTER → 2022-03-26 13:14 | Outpatient (RCR) | payer OTHER, SELFPAY ==
[2020-06-10 12:46] LABS: SARS-COV-2 PCR UMBRL Not Detected
[2020-06-15 11:30] LABS: COVID-19 Test Negative (Negative)
[2020-06-21 15:30] LABS: SARS-COV-2 PCR UMBRL NEGATIVE
== END | disposition home or self-care (01) ==
LOC: HO.EMPCOV 06-05 10:31
PROVIDERS: Visit Provider Internal Medicine
DX: Z20.828 Contact with and (suspected) exposure to other viral communicable diseases (principal)
CPT/HCPCS: 36415; 87635; C9803; U0003